=== PATIENT | female | born 1970 | race Caucasian/White ===

== ENCOUNTER 2023-08-09 11:29 | Outpatient (OUT) | payer OTHER, SELFPAY ==
--- NOTE | 2023-08-09 11:39 | MM_ITS ---
Patient Name: HARDEEP GARCIA MR#: [id number] : 1970 Exam Date: 08/09/2023 Ordering Doctor: JACKIE Kunz CNP RADIOLOGY REPORT PROCEDURE: MM TOMOSYNTHESIS SCREENING BI COMPARISON: MG MAMM SCREEN JUAN MANUEL W CAD, 01/22/2020. MG MAMM SCREEN 3D JUAN MANUEL CAD, 09/06/2021. INDICATIONS: screening Calculator Name NCI Breast Cancer Risk Assessment Tool 5 Year Breast Cancer Risk 1.20% Lifetime Breast Cancer Risk 8.10% Personal Breast Cancer No Personal Ovarian Cancer No Treatments None Family Cancers None LOCATION: [facility] BREAST COMPOSITION: There are scattered areas of fibroglandular density. FINDINGS: DIAGNOSTIC CATEGORY 1--NEGATIVE. NO CHANGE FROM COMPARISON ASSESSMENT. Scattered benign-appearing calcifications are present. Scattered benign-appearing lymph nodes are present. RIGHT BREAST: No significant suspicious finding. LEFT BREAST: No significant suspicious finding. RECOMMENDATIONS: ROUTINE MAMMOGRAM AND CLINICAL EVALUATION IN 12 MONTHS. PLEASE NOTE: A NORMAL MAMMOGRAM DOES NOT EXCLUDE THE POSSIBILITY OF BREAST CANCER. A CLINICALLY SUSPICIOUS PALPABLE LUMP SHOULD BE BIOPSIED. Dictated by: Berny Howard MD on 08/09/2023 at 14:33 Approved by: Berny Howard MD on 08/09/2023 at 14:35
== END 2023-08-09 11:30 | disposition home or self-care (01) ==
LOC: MAMMO 11:33
PROVIDERS: PCP Nurse Practitioner; Visit Provider Nurse Practitioner
DX: Z12.31 Encounter for screening mammogram for malignant neoplasm of breast (principal)
CPT/HCPCS: 77063; 77067

== ENCOUNTER 2024-09-29 10:59 | Outpatient (OUT) | payer OTHER, SELFPAY ==
--- OUTSIDE RECORDS SUMMARY | 2024-09-23 14:40 | XMS_ITS | Encounter Summary ---
Author Organization [facility] Address [address] [place] [address] Care Team Providers Care Electrical Appliance Mechanic Name Role Phone Mack Vaughn MD Primary Care Provider Amy Kunz REGULATORY COMPLIANCE MANAGER Unavailable [phone] Amy Kunz REGULATORY COMPLIANCE MANAGER Unavailable [phone] Reason for Visit * Reason Comments Diabetes Encounter Details Date Type Department Care Team (Late st Contact Info) Description 09/23/2024 2:40 PM EDT Office Visit [facility] [address] [place] [address] Amy Kunz, REGULATORY COMPLIANCE MANAGER [address] [place] [phone] Type 2 diabetes mellitus without complication, without long-term current use of insulin (HCC) (Primary Dx); Obstructive sleep apnea, adult; Primary hypertension ; Gastroesophageal reflux disease without esophagitis; Age-related osteoporosis without current pathological fracture ; Mild persistent asthma without complication (HCC) Social History Tobacco Use Types Packs/Day Years Used Date Smoking Tobacco: Never Alcohol Use Standard Drinks/Week Comments Not Currently 0 (1 standard drink = 0.6 oz pure alcohol) caffine:diet pepsi 2-3 can daily Humiliation, Afraid, Rape, and Kick questionnair e Answer Date Recorded Within the last year, have y ou been afraid of your partner or ex-partner? No 04/09/2023 Within the last year, have y ou been humiliated or emotionally abused in other ways by your partner or ex-partner? No Within the last year, have y ou been kicked, hit, slapped, or otherwise physically hurt by your partner or ex-partner? No 04/09/2023 Within the last year, have y ou been raped or forced to have any kind of sexual activity by your partner or ex-partner? No 04/09/2023 Social Connection and Isolat ion Panel [NHANES] Answer Date Recorded Frequency of Communication w ith Friends and Family Not on file 05/15/2024 How often do you get togethe r with friends or relatives? More than three times a week 05/15/2024 Attends Faith Services Not on file 05/15 Active Member of Clubs or Organizations Not on f ile 05/15/2024 Attends Club or Organization Meetings Not on nikki e 05/15/2024 Are you , , di vorced, , never , or living with a partner? 05/15/2024 AUDIT-C Answer Date Recorded Q1: How often do you have a drink containing alcohol? Never 04/09/2023 Q2: How many drinks containi ng alcohol do you have on a typical day when you are drinking? Patient does not drink Q3: How often do you have si x or more drinks on one occasion? Never 04/09/2023 Overall Financial Resource Strain (CARDIA) Answe r Date Recorded How hard is it for you to pa y for the very basics like food, housing, medical care, and heating? Hard 04/09/2023 [facility] - Occupational Stress Questionnaire Answer Date Recorded Do you feel stress - tense, restless, nervous, or anxious, or unable to sleep at night because your mind is troubled all the time - these days? To some extent 04/09/2023 Exercise Vital Sign Answer Date Recorde d On average, how many days pe r week do you engage in moderate to strenuous exercise (like a brisk walk)? 0 days 04/09/2023 On average, how many minutes do you engage in exercise at this level? 0 min 04/09/2023 Hunger Vital Sign Answer Date Recorded Within the past 12 months, y ou worried that your food would run out before you got the money to buy more. Sometimes true Within the past 12 months, t he food you bought just didn't last and you didn't have money to get more. Sometimes true 04/2023 PRAPARE - Transportation Answer Date Re corded In the past 12 months, has l ack of transportation kept you from medical appointments or from getting medications? No 04/2023 In the past 12 months, has l ack of transportation kept you from meetings, work, or from getting things needed for daily living? No 04/09/2023 Housing Stability Vital Sign Answer Jose Elias e Recorded In the last 12 months, was t here a time when you were not able to pay the mortgage or rent on time? No 04/09/2023 In the last 12 months, how many places have you lived? 1 04/09/2023 In the last 12 months, was t here a time when you did not have a steady place to sleep or slept in a usp (including now)? No 04/09/2023 Comments Unknown Sex and Gender Information Value Date Recorded Sex Assigned at Not on file Legal Sex Female 6:48 PM EDT Gender Identity Not on file Sexual Orientation Not on file documented as of this encounter Last Filed Vital Signs Vital Sign Reading Time Taken Comments Blood Pressure 110/76 09/23/2024 2:45 PM EDT Pulse 103 09/23/2024 2:45 PM EDT Temperature 36.7 C (98.1 F) 09/23/2024 2:45 PM EDT Respiratory Rate 18 09/23/2024 2:45 PM EDT Oxygen Saturation 94% 09/23/2024 2:45 PM EDT Inhaled Oxygen Concentration - - Weight 132 kg (290 lb 3.2 oz) 09/23/2024 2:45 PM EDT Height - - Body Mass Index 51.41 05/22/2024 1:14 PM EST documented in this encounter Progress Notes * Amy Kunz, REGULATORY COMPLIANCE MANAGER - 09/23/2024 3:43 PM EDTAssociated Problem(s): Mild persistent asthma without complication (HCC) Cont ICS, as well as rescue inhaler No changes in meds or doses * Amy Kunz NP - 09/23/2024 3:01 PM EDTAssociated Problem(s): Type 2 diabetes mellitus without complication, without long-term current useof insulin (HCC) Check blood sugars daily, notify if <70 or >200. Take medications (pills or insulin) as directed. Monitor for s/s of hypoglycemia (sweaty, dizziness, nausea, vomiting, or shakiness). Watch for increase in thirst, urination, or appetite. Inspect feet frequently monitoring for open wounds , andalso recommend yearly eye exam. Pt should attempt to remain as physically active as chronic conditions allow, as well as trying to follow a diet low in carbohydrates, and simple sugars. Asa, statin, metformin, lala Check A1c: 6.7% 09/23/24 * Amy Kunz NP - 09/23/2024 2:40 PM EDT Images from the original note were not included. Derick Thornton is a 54 y.o. female presents with chief complaint of Diabetes HPI: Continues with Rheumatology for sarcoid, they recently started methotrexate and trying to wean downand off prednisone Continues with psych and counseling as well, meds are working well Hypertension This is a chronic problem. The current episode started more than 1 year ago. The problem is unchanged. The problem is controlled. Pertinent negatives include no chest pain, headaches, orthopnea, palpitations, peripheral edema, PND or shortness of breath. There are no associated agents to hypertension. Risk factors for coronary artery disease include diabetes mellitus, dyslipidemia, obesity and sedentary lifestyle. Past treatments include LALA inhibitors. The current treatment provides significant improvement. There are no compliance problems. Diabetes She presents for her follow-up diabetic visit. She has type 2 diabetes mellitus. Her disease coursehas been stable. There are no hypoglycemic associated symptoms. Pertinent negatives for hypoglycemia include no dizziness, headaches, nervousness/anxiousness, seizures or tremors. Pertinent negativesfor diabetes include no chest pain, no foot paresthesias, no polydipsia, no polyphagia, no polyuriaand no visual change. There are no hypoglycemic complications. Symptoms are stable. Diabetic complications include heart disease. Pertinent negatives for diabetic complications include no nephropathyor peripheral neuropathy. Risk factors for coronary artery disease include diabetes mellitus, dyslipidemia, hypertension, obesity and sedentary lifestyle. Current diabetic treatment includes oral agent (monotherapy). She is compliant with treatment all of the time. An LALA inhibitor/angiotensin II receptor kristin is being taken. She does not see a structural steel erector.Eye exam is current. SUBJECTIVE: MEDICATIONS: Current Outpatient Medications Medication Instructions albuterol HFA 90 mcg/act inhaler 2 puffs, Daily PRN alendronate (FOSAMAX) 35 mg, Oral, Every 7 days, Take in the morning with a full glass of water, prince empty stomach, and do not take anything else by mouth or lie down for the next 30 min. Calcium Carb-Cholecalciferol (Calcium + Vitamin D3) 600-5 MG-MCG tablet 1 tablet, Oral, 2 times daily cyanocobalamin (VITAMIN B-12) 1,000 mcg, Daily DULoxetine (Cymbalta) [address] capsule 2 capsules, Daily ergocalciferol (Vitamin D2) 1.25 MG (61028 UT) capsule 1 pill twice a week fluticasone (Flovent) 44 MCG/ACT inhaler folic acid (FOLVITE) 1 mg, Daily gabapentin (NEURONTIN) 300 mg, Oral, 2 times daily glucose blood (True Metrix Blood Glucose Test) test strip 1 each, Other, Daily lisinopril 10 mg, Oral, Daily loratadine (CLARITIN) 10 mg, Oral, Daily metFORMIN (GLUCOPHAGE) 500 mg, Oral, Daily with breakfast methotrexate 2.5 MG tablet 8 tablets Orally Once a week for 30 days nortriptyline (PAMELOR) 50 mg, Nightly omeprazole (PRILOSEC) 20 mg, Oral, Daily before breakfast tiZANidine (Zanaflex) 4 MG capsule 1 capsule, Nightly PRN traZODone (Desyrel) 50 MG tablet 1 tablet, Nightly ALLERGIES: No Known Allergies REVIEW OF SYMPTOMS: Review of Systems Constitutional: Negative for appetite change, chills and fever. HENT: Negative for congestion, ear pain and sore throat. Eyes: Negative for pain, discharge, redness and visual disturbance. Respiratory: Negative for cough, shortness of breath and wheezing. Cardiovascular: Negative for chest pain, palpitations, orthopnea, leg swelling and PND. Gastrointestinal: Negative for abdominal pain, blood in stool, constipation, diarrhea, nausea and vomiting. Genitourinary: Negative for difficulty urinating, dysuria and frequency. Musculoskeletal: Positive for arthralgias. Negative for back pain, joint swelling and myalgias. Skin: Negative for rash and wound. Neurological: Negative for dizziness, tremors, seizures, syncope and headaches. Psychiatric/Behavioral: Negative for behavioral problems, self-injury and suicidal ideas. The patient is not nervous/anxious. Depression Hematological: Does not bruise/bleed easily. Endocrine: Negative for polydipsia, polyphagia and polyuria. Allergic/Immunologic: Negative for environmental allergies and food allergies. PAST MEDICAL HISTORY Past Medical History: Diagnosis Date Age-related osteoporosis with current pathological fracture, initial encounter 06/18/2023 Bipolar depression ([facility]) 04/10/2023 Chronic lumbar pain 06/18/2023 Chronic pain of right knee Dyspnea 04/23/2023 Elevated bilirubin 06/18/2023 Environmental allergies 06/18/2023 Fibromyalgia 04/10/2023 long term care phlebotomist systemic steroid user 06/18/2023 Obstructive sleep apnea, adult 06/18/2023 Primary hypertension 04/10/2023 Sarcoidosis 04/10/2023 Skin lesion 06/18/2023 Tear of meniscus of right knee, unspecified meniscus, unspecified tear type, unspecified whether old or current tear 06/18/2023 Type 2 diabetes mellitus without complication, without long-term current use of insulin ([facility]) 04/10/2023 Past Surgical History: Procedure Laterality Date SECTION, LOW TRANSVERSE x 2 HYSTERECTOMY Partial - not due to cancer KNEE SURGERY Left 07/31/[address] Mooney LUMBAR EPIDURAL INJECTION Lumbar injections with pain mgmt TONSILLECTOMY and Adenoidectomy family history includes Asthma in her mother; Cancer in her mother; Depression in her mother; Diabetes in her father; GILDA disease in her mother; Hypertension in her father and mother; Mental illness in her mother. OBJECTIVE: Visit Vitals BP 110/76 (BP Location: Left arm, Patient Position: Sitting, BP Cuff Size: Adult long) Pulse 103 Temp 98.1 ??F (Temporal) Resp 18 Wt 290 lb 3.2 oz SpO2 94% BMI 51.41 kg/m?? Smoking Status Never BSA 2.42 m?? Physical Exam Vitals and nursing note reviewed. Constitutional: General: She is not in acute distress. Appearance: Normal appearance. HENT: Head: Normocephalic and atraumatic. Right Ear: External ear normal. Left Ear: External ear normal. Nose: Nose normal. Mouth/Throat: Mouth: Mucous membranes are moist. Eyes: Extraocular Movements: Extraocular movements intact. Conjunctiva/sclera: Conjunctivae normal. Neck: Vascular: No carotid bruit. Cardiovascular: Rate and Rhythm: Normal rate and regular rhythm. Pulses: Normal pulses. Heart sounds: Normal heart sounds. No murmur heard. Pulmonary: Effort: Pulmonary effort is normal. Breath sounds: Normal breath sounds. No wheezing or rhonchi. Abdominal: General: Bowel sounds are normal. There is no distension. Palpations: Abdomen is soft. There is no mass. Tenderness: There is no abdominal tenderness. Musculoskeletal: General: Normal range of motion. Cervical back: Normal range of motion and neck supple. Right lower leg: No edema. Left lower leg: No edema. Skin: General: Skin is warm and dry. Capillary Refill: Capillary refill takes 2 to 3 seconds. Findings: No rash. Neurological: General: No focal deficit present. Mental Status: She is alert and oriented to person, place, and time. Psychiatric: Mood and Affect: Mood normal. Behavior: Behavior normal. Thought Content: Thought content normal. Judgment: Judgment normal. ASSESSMENT AND PLAN: No follow-ups on file. Problem List Items Addressed This Visit Gastroesophageal reflux disease without esophagitis Also taking d/t chronic steroid use Recommendations: freq small meals, nothing to eat or drink at least 2 hours prior to bed, limit caffeine, alcohol, as well as spicy foods Meds to limit or avoid if possible: NSAIDS Elevate HOB if possible Current med: omeprazole Primary hypertension Please check blood pressure daily and record DASH diet Limit caffeine Take medication as directed Contact office if chest pain, pressure, dizziness, shortness of breath, swelling legs Recommend slow position changes Current med: lisinopril Type 2 diabetes mellitus without complication, without long-term current use of insulin ([facility]) - Primary Check blood sugars daily, notify if <70 or >200. Take medications (pills or insulin) as directed. Monitor for s/s of hypoglycemia (sweaty, dizziness, nausea, vomiting, or shakiness). Watch for increase in thirst, urination, or appetite. Inspect feet frequently monitoring for open wounds , andalso recommend yearly eye exam. Pt should attempt to remain as physically active as chronic conditions allow, as well as trying to follow a diet low in carbohydrates, and simple sugars. Asa, statin, metformin, lala Check A1c: 6.7% 09/23/24 Relevant Orders POCT glycosylated hemoglobin (Hb A1C) docked device (Completed) Obstructive sleep apnea, adult You have a diagnosis of obstructive sleep apnea. It is recommended that you wear your PAP device any time while in bed sleeping. Not using the PAP device can increase your risk of elevated/uncontrolled high blood pressure, atrial fibrillation, heart attack, stroke, or sudden . Compliance with PAP: not Dog chewed up mask, had to wait a year, and then just didn't go back to get it. Webster no benefit from this Mild persistent asthma without complication (HCC) Cont ICS, as well as rescue inhaler No changes in meds or doses Age-related osteoporosis without current pathological fracture On fosamax Relevant Orders DEXA bone density * Amy Kunz NP - 09/23/2024 6:53 AM EDTAssociated Problem(s): Age-related osteoporosis without current pathological fracture On fosamax * Amy Kunz NP - 09/23/2024 6:52 AM EDTAssociated Problem(s): Gastroesophageal reflux disease without esophagitis Also taking d/t chronic steroid use Recommendations: freq small meals, nothing to eat or drink at least 2 hours prior to bed, limit caffeine, alcohol, as well as spicy foods Meds to limit or avoid if possible: NSAIDS Elevate HOB if possible Current med: omeprazole * Amy Kunz NP - 09/23/2024 6:52 AM EDTAssociated Problem(s): Primary hypertension Please check blood pressure daily and record DASH diet Limit caffeine Take medication as directed Contact office if chest pain, pressure, dizziness, shortness of breath, swelling legs Recommend slow position changes Current med: lisinopril * Amy Kunz NP - 09/23/2024 6:52 AM EDTAssociated Problem(s): Obstructive sleep apnea, adult You have a diagnosis of obstructive sleep apnea. It is recommended that you wear your PAP device any time while in bed sleeping. Not using the PAP device can increase your risk of elevated/uncontrolled high blood pressure, atrial fibrillation, heart attack, stroke, or sudden . Compliance with PAP: not Dog chewed up mask, had to wait a year, and then just didn't go back to get it. Webster no benefit from this documented in this encounter Plan of Treatment Upcoming Encounters Date Type Department Care Team (Late st Contact Info) Description 03/25/2025 1:20 PM EST Office Visit [facility] [address] [place] [address] Amy Kunz NP [address] [place] [address] Scheduled Orders Name Type Priority Associated Diagnoses Orde r Schedule DEXA bone density Imaging Routine Age-related osteoporosis without current pathological fracture Expected: 09/23/2024 (Approximate), Expires: 09/23/2025 documented as of this encounter Procedures Procedure Name Priority Date/Time Associated Diagnosis Comments POCT GLYCOSYLATED HEMOGLOBIN (HGB A1C) Routine 09/23/2024 3:01 PM EDT Type 2 diabetes mellitus without complication, without long-term current use of insulin (HCC) documented in this encounter Results * (ABNORMAL) POCT glycosylated hemoglobin (Hb A1C) docked device (09/23/2024 3:01 PM EDT) Hemoglobin A1C 6.7 Blood Venous blood specimen / Unknown 09/23/2024 3:01 PM EDT Amy Kunz NP POINT OF CARE TEST ENTER/EDIT O RDERABLES Final Result documented in this encounter Visit Diagnoses Diagnosis Type 2 diabetes mellitus without complication, without long-term current use of insulin (HCC)- Primary Obstructive sleep apnea, adult Primary hypertension Unspecified essential hypertension Gastroesophageal reflux disease without esophagitis Esophageal reflux Age-related osteoporosis without current pathological fracture Mild persistent asthma without complication (HCC) documented in this encounter Care Teams Electrical Appliance Mechanic Relationship Specialty Start Date End Date Mack Vaughn MD [address] [place] [phone] PCP - General Family Medicine 10/03/23 Amy Kunz NP [address] [place] [phone] PCP - [facility] 04/09/24 Amy Kunz NP [address] [place] [phone] Nurse Practitioner Family Medicine 10/03/23 documented as of this encounter
--- OUTSIDE RECORDS SUMMARY | 2024-09-29 11:05 | XMS_ITS | Encounter Summary ---
Author Organization [facility] Address [id number] [address] [place] [address] Care Team Providers Care Chartered Financial Analyst Name Role Phone Mack Vaughn MD Primary Care Provider [phone] Encounter Details Date Type Department Care Team (Latest Contact Info) Description 09/23/2024 Travel Social History Tobacco Use Types Packs/Day Years Used Date Smoking Tobacco: Never Smokeless Tobacco: Never Alcohol Use Standard Drinks/Week Comments No 0 (1 standard drink = 0.6 oz pur e alcohol) Childcare Answer Date Recorded Childcare Unknown 09/10/2018 Employment Answer Date Recorded Employment Unknown 09/10/2018 Hunger Screening Answer Date Recorded Within the past 12 months we worried whether our food would run out before we got money to buy more. Never True 07/22/2024 Within the past 12 months th e food we bought just didn't last and we didn't have money to get more. Never True 07/22/2024 Purpose - Life Answer Date Recorded Purpose and direction in life Unknown Comments No Sex and Gender Information Value Date Recorded Sex Assigned at Female 01/30/2022 12:07 AM EDT Legal Sex Female 11:32 AM EDT Gender Identity Female 11/18/2020 4:13 PM EDT Sexual Orientation Straight 11/18/2020 4: 13 PM EDT documented as of this encounter Plan of Treatment Not on file documented as of this encounter Visit Diagnoses Not on filedocumented in this encounter Care Teams Chartered Financial Analyst Relationship Specialty Start Date End Date Mack Vaughn MD PCP - General 11/9/24 documented as of this encounter
--- OUTSIDE RECORDS SUMMARY | 2024-09-29 11:05 | XMS_ITS | Encounter Summary ---
Author Organization [facility] Address [address] [place] [address] Care Team Providers Care Visiting Professor Name Role Phone Mack Vaughn MD Primary Care Provider Amy Kunz ENGRAVER FLATWARE Unavailable [phone] Amy Kunz ENGRAVER FLATWARE Unavailable [phone] Encounter Details Date Type Department Care Team (Late st Contact Info) Description 05/05/2024 Orders Only [facility] [address] [place] [address] Amy Kunz, ENGRAVER FLATWARE [address] [place] [address] Social History Tobacco Use Types Packs/Day Years [...] or ex-partner? No 04/09/2023 Social Connection and Isolation Panel [NHANES] A nswer Date Recorded In a typical week, how many times do you talk on the phone with family, friends, or neighbors? Three times a week 04/09/2023 How often do you get togethe r with friends or relatives? Once a week 04/09/2023 How often do you attend chur ch or taoism services? Never 04/09/2023 Do you belong to any clubs o r organizations such as catholic groups, unions, fraternal or athletic groups, or school groups? No 04/09/2023 How often do you attend meet ings of the clubs or organizations you belong to? Never 04/09/2023 Are you , , di vorced, , never , or living with a partner? 04/09/2023 AUDIT-C Answer Date Recorded Q1: How often [...] housing, medical care, and heating? Hard 04/09/2023 [facility] - Occupational Stress [...] place to sleep or slept in a half-way (including now)? No 04/09/2023 Comments Unknown Sex and Gender Information Value Date Recorded Sex Assigned at Not on file Legal Sex Female 6:48 PM EDT Gender Identity Not on file Sexual Orientation Not on file documented as of this encounter Plan of Treatment Upcoming Encounters Date Type Department Care Team (Late st Contact Info) Description 03/25/2025 1:20 PM EST [facility] [address] [place] [address] Amy Kunz NP [address] [place] [address] documented as of this encounter Procedures Procedure Name Priority Date/Time Associated Diagnosis Comments SCANNED LABS Routine 05/05/2024 7:38 AM EST documented in this encounter Results * SCANNED LABS (05/05/2024 7:38 AM EST) us Amy Kunz NP LAB CHG PERFORMABLES Final Resu lt documented in this encounter Visit Diagnoses Not on filedocumented in this encounter Care Teams Visiting Professor Relationship Specialty Start Date End Date aMck Vaughn MD [address] [place] [address] PCP - General Family Medicine 10/03/23 Amy Kunz NP [address] [place] [address] PCP - [facility] 04/09/24 Amy Kunz NP [address] [place] [address] Nurse Practitioner Family Medicine 10/03/23 documented as of this encounter
--- OUTSIDE RECORDS SUMMARY | 2024-09-29 11:05 | XMS_ITS | Encounter Summary ---
Author Organization [facility] Address [address] [place] [address] Care Team Providers Care Break Up Worker Name Role Phone Mack Vaughn MD Primary Care Provider [phone] Amy Kunz UTILITY AGENT Unavailable [phone] Amy Kunz UTILITY AGENT Unavailable [phone] Reason for Visit * Reason Onset Date Comments Med Refill 09/26/2024 Encounter Details Date Type Department Care Team (Late st Contact Info) Description 09/26/2024 Refill [facility] [address] [place] [address] Amy Kunz, UTILITY AGENT [address] [place] [address] Vitamin D deficiency Social History Tobacco Use Types Packs/Day Years [...] than three times a week 05/15/2024 Attends Christianity Services Not on file 05/15 Active Member [...] housing, medical care, and heating? Hard 04/09/2023 [facility] - [...] place to sleep or slept in a snf (including now)? No 04/09/2023 Comments Unknown Sex and Gender Information Value Date Recorded Sex Assigned at Not on file Legal Sex Female 6:48 PM EDT Gender Identity Not on file Sexual Orientation Not on file documented as of this encounter Plan of Treatment Upcoming Encounters Date Type Department Care Team (Late st Contact Info) Description 03/25/2025 1:20 PM EST Office Visit [facility] [address] [place] [address] Amy Kunz NP [address] [place] [address] documented as of this encounter Visit Diagnoses Diagnosis Vitamin D deficiency documented in this encounter Care Teams Break Up Worker Relationship Specialty Start Date End Date Mack Vaughn MD [address] [place] [address] PCP - General Family Medicine 10/03/23 Amy Kunz NP [address] [place] [address] PCP - [facility] 04/09/24 Amy Kunz NP [address] [facility] [place] [address] Nurse Practitioner Family Medicine 10/03/23 documented as of this encounter
--- OUTSIDE RECORDS SUMMARY | 2024-09-29 11:05 | XMS_ITS | Encounter Summary ---
Author Organization [facility] Address [address] [place] [address] Care Team Providers Care Sponsorship Coordinator Name Role Phone Amy Kunz NP Primary Care Provider Mariza Lemus NP Unavailable [phone] Mack Vaughn MD Primary Care Provider [phone] Amy Kunz AIRBRUSH ARTIST Unavailable [phone] Amy Kunz AIRBRUSH ARTIST Unavailable [phone] Reason for Visit * Reason Comments Med Refill Encounter Details Date Type Department Care Team (Late st Contact Info) Description 04/22/2023 Refill [facility] [address] [place] [address] Mariza Lemus AIRBRUSH ARTIST Social History Tobacco Use Types Packs/Day Years [...] often do you attend chur ch or hindu services? Never 04/09/2023 Do you belong to any clubs o r organizations such as adventism groups, unions, fraternal or athletic groups, or [...] housing, medical care, and heating? Hard 04/09/2023 [facility] - Occupational Stress [...] place to sleep or slept in a chcf (including now)? No 04/09/2023 Comments Unknown Sex and Gender Information Value Date Recorded Sex Assigned at Not on file Legal Sex Female 6:48 PM EDT Gender Identity Not on file Sexual Orientation Not on file documented as of this encounter Miscellaneous Notes * Telephone Encounter - Mariza Lemus NP - 04/25/2023 11:50 AM EST Pt has not been seen since last summer, she should get this from her pcp, thanks documented in this encounter Plan of Treatment Upcoming Encounters Date Type Department Care Team (Late st Contact Info) Description 03/25/2025 1:20 PM EST Office Visit [facility] [address] [place] [address] Amy Kunz NP [address] [place] [address] documented as of this encounter Visit Diagnoses Not on filedocumented in this encounter Care Teams Sponsorship Coordinator Relationship Specialty Start Date End Date Amy Kunz NP [address] [place] [address] PCP - General 08/30/22 10/02/23 Mariza Lemus NP PCP - [facility] 07/09/23 Mack Vaughn MD [address] [place] [address] PCP - General [facility] Medicine 10/03/23 Amy Kunz NP [address] [place] [address] PCP - [facility] 04/09/24 Amy Kunz NP [address] [place] [address] Nurse Practitioner Family Medicine 10/03/23 documented as of this encounter
--- OUTSIDE RECORDS SUMMARY | 2024-09-29 11:05 | XMS_ITS | Encounter Summary ---
Author Organization [employer] tem Address [id number] [address] [place] [address] Care Team Providers Care Processing Associate Name Role Phone Mack Vaughn MD Primary Care Provider [phone] Reason for Visit * Reason Onset Date Comments Med Refill 07/28/2020 Encounter Details Date Type Department Care Team (Late st Contact Info) Description 07/28/2020 Refill [facility] [address] [place] [address] Geri Castle, ANUJA Disorder of sacrum Social History Tobacco Use Types Packs/Day Years Used Date Smoking Tobacco: Never Smokeless Tobacco: Never Alcohol Use Standard Drinks/Week Comments No 0 (1 standard drink = 0.6 oz pur e alcohol) Childcare Answer Date Recorded Childcare Unknown 09/10/2018 Employment Answer Date Recorded Employment Unknown 09/10/2018 Purpose - Life Answer Date Recorded Purpose and direction in life Unknown Comments No Sex and Gender Information Value Date Recorded Sex Assigned at Female 01/30/2022 12:07 AM EDT Legal Sex Female 11:32 AM EDT Gender Identity Female 11/18/2020 4:13 PM EDT Sexual Orientation Straight 11/18/2020 4: 13 PM EDT COVID-19 Exposure Response Date Recorded In the last month, have you been in contact with someone who was confirmed or suspected to have Coronavirus / COVID-19? No / Unsure 07/19/2020 2:29 PM EDT documented as of this encounter Miscellaneous Notes * Telephone Encounter - Geri Castle RN - 07/28/2020 8:07 AM EDT Last Office Visit: 06/03/2020 Next Office Visit: 08/26/2020 Last Urine Drug Screen: 02/25/2021 OARRS appropriate documented in this encounter Plan of Treatment Not on file documented as of this encounter Visit Diagnoses Diagnosis Disorder of sacrum Disorders of sacrum documented in this encounter Care Teams Processing Associate Relationship Specialty Start Date End Date Mack Vaughn MD PCP - General 02/16/24 documented as of this encounter
--- OUTSIDE RECORDS SUMMARY | 2024-09-29 11:05 | XMS_ITS | Clinical Summary ---
Author Organization [employer] tem Address [id number] [address] [place] [address] Care Team Providers Care Picker Operator Name Role Phone Mack Vaughn MD Primary Care Provider [phone] Allergies No known active allergies Medications * This document contains information received from the source organization and may not represent a complete record from that organization. gabapentin (NEURONTIN) 300 mg capsule Take 1 capsule (300 mg total) by mouth in the morning. Active predniSONE (DELTASONE) 10 mg tablet Take 1 tablet (10 mg total) by mouth in the morning. Active albuterol (PROVENTIL HFA;VENTOLIN HFA) 90 mcg/actuation inhaler Inhale 2 puffs as needed for wheezing. Active ergocalciferol (DRISDOL) 50,000 unit capsule Take 1 capsule (50,000 Units total) by mouth once a week. Active lisinopril (PRINIVIL,ZESTRIL) 10 mg tablet Take 1 tablet (10 mg total) by mouth in the morning. Active loratadine (CLARITIN REDITABS) 10 mg disintegrating tablet Dissolve 1 tablet (10 mg total) on tongue daily as needed. Active alendronate (FOSAMAX) 70 mg tablet Take 1 tablet (70 mg total) by mouth once a week. 8 Active metFORMIN (GLUCOPHAGE) 500 mg tablet Take 1 tablet (500 mg total) by mouth nightly. 9 Active traZODone (DESYREL) 50 mg tablet Take 1 tablet (50 mg total) by mouth nightly as needed, may repeat once. Active CALCIUM 600 + D,3, 600 mg(1,500mg) -200 unit per tablet Take 1 tablet by mouth in the morning. 0 Active omeprazole (PriLOSEC) 20 mg capsule Take 1 capsule (20 mg total) by mouth in the morning. 0 Active fluticasone propionate (FLOVENT HFA) 44 mcg/actuation inhaler Inhale 1 puff 2 (two) times a day as needed. Active nortriptyline (PAMELOR) 25 mg capsuleIndications: Major depressive disorder, recurrent severe without psychotic features (CMS-HCC) TAKE TWO CAPSULES BY MOUTH ONCE NIGHTLY 180 capsule 3 4 Active cyanocobalamin 1000 MCG tablet Daily 4 Active DULoxetine (CYMBALTA) 60 mg capsuleIndications: Major depressive disorder, recurrent severe without psychotic features (CMS-HCC) Take 2 capsules (120 mg total) by mouth in the morning. 180 capsule 3 5 Active Active Problems Problem Noted Date Diagnosed Date Abnormal EKG 05/29/2022 Primary hypertension 05/29/2022 Other insomnia 07/25/2021 Sarcoidosis 07/01/2018 Disorder of sacrum 11/28/2016 Localized osteoarthritis of right knee 7 Major depressive disorder, r ecurrent severe without psychotic features 11/22/2016 Thoracic spondylosis without myelopathy 05/29/19 17 Spondylosis of lumbar region without myelopathy or radiculopathy 05/29/2016 Lumbosacral spondylosis without myelopathy 05/29 Back muscle spasm 05/29/2016 Obesity, unspecified 05/29/2016 Obstructive sleep apnea (adult) (pediatric) 05/11 Chronic pain syndrome 05/29/2016 Localized osteoarthrosis, lower leg 05/29/2016 Lumbago 05/29/2016 Lumbosacral radiculopathy 05/29/2016 Admission for long-term opiate analgesic use Encounters * This document contains information received from the source organization and may not represent a complete record from that organization. Date Type Department Care Team Description 09/23/2024 Travel 09/02/2024 Travel 08/12/2024 Travel 07/22/2024 Travel 07/01/2024 Travel from Last 3 Months Family History Medical History Relation Name Comments Diabetes Father borderline Hypertension Father Cancer Maternal Grandfather brain Asthma Mother Breast cancer Mother Hypertension Mother Relation Name Status Comments Father Alive Maternal Grandfather Mother Alive Social History Tobacco Use Types Packs/Day Years Used Date Smoking Tobacco: Never Smokeless Tobacco: Never Tobacco Cessation:Counseling Given: Not Answered Alcohol Use Standard Drinks/Week Comments No 0 [...] Orientation Straight 11/18/2020 4: 13 PM EDT Last Filed Vital Signs Vital Sign Reading Time Taken Comments Blood Pressure 165/72 02/16/2024 12:48 PM EST Pulse 99 02/16/2024 12:48 PM EST Temperature 36.6 C (97.8 F) 02/16/2024 12:48 PM EST Respiratory Rate 16 02/16/2024 12:48 PM EST Oxygen Saturation 97% 02/16/2024 12:48 PM EST Inhaled Oxygen Concentration - - Weight 124.7 kg (275 lb) 02/16/2024 12:48 PM EST Height 160 cm (5' 3 ) 02/16/2024 12:48 PM EST Body Mass Index 48.71 02/16/2024 12:48 PM EST Plan of Treatment Health Maintenance Due Date Last Done Comments Depression Screening 1980 Adult BMI Follow Up Plan 1986 DTaP,Tdap and Td Vaccines (1 - Tdap) 1987 Zoster (Shingles) Vaccine (1 of 2) 2018 Influenza Vaccine 12/08/2024 Adult BMI Screening 02/15/2025 02/16/2024 Tobacco Screening 03/14/2025 03/14/2024 Medical Devices Not on file Insurance [employer] Care Teams Picker Operator Relationship Specialty Start Date End Date Mack Vaughn MD PCP - General 02/16/24
--- OUTSIDE RECORDS SUMMARY | 2024-09-29 11:05 | XMS_ITS | Encounter Summary ---
Author Organization [facility] Address [address] [place] [address] Care Team Providers Care Hogshead Filler Name Role Phone Mack Vaughn MD Primary Care Provider Amy Kunz EYELETTER Unavailable [phone] Amy Kunz EYELETTER Unavailable [phone] Encounter Details Date Type Department Care Team (Late st Contact Info) Description 10/29/2023 Abstract [facility] [address] [place] [address] Amy Kunz EYELETTER [address] [place] [address] Social History Tobacco Use Types Packs/Day Years [...] often do you attend chur ch or restoration services? Never 04/09/2023 Do you belong to any clubs o r organizations such as islam groups, unions, fraternal or athletic groups, or [...] housing, medical care, and heating? Hard 04/09/2023 [facility] - Occupational [...] place to sleep or slept in a assisted (including now)? No 04/09/2023 Comments Unknown Sex [...] Office Visit [facility] [address] [place] [address] Amy Kunz NP [address] [place] [address] documented as of this encounter Visit Diagnoses Not on filedocumented in this encounter Care Teams Hogshead Filler Relationship Specialty Start Date End Date Mack Vaughn MD [address] [place] [address] PCP - General Family Medicine 10/03/23 Amy Kunz NP [address] [place] [address] PCP - [facility] 04/09/24 mAy Kunz NP [address] [place] [address] Nurse Practitioner Family Medicine 10/03/23 documented as of this encounter
--- OUTSIDE RECORDS SUMMARY | 2024-09-29 11:05 | XMS_ITS | Clinical Summary ---
Author Organization [facility] Address [address] [place] [address] Care Team Providers Care Consulting Services Manager Name Role Phone Amy Kunz CNP Primary Care Provider Allergies No known active allergies Medications alendronate (FOSAMAX) 35 mg tablet Take 35 mg by mouth once each week. Active Benzonatate 200 mg capsule Take 200 mg by mouth three times daily as needed. Active DULoxetine (CYMBALTA) 60 mg capsule Take 120 mg by mouth once daily. Active ergocalciferol, vitamin D2, (DRISDOL) 50,000 unit capsule Take 50,000 Units by mouth once each week. Active gabapentin (NEURONTIN) 300 mg capsule Take 300 mg by mouth once daily. Active HYDROcodone-acet aminophen (NORCO) 5-325 mg per tablet Take 1 tablet by mouth three times daily as needed. Active hydroxychloroqui ne (PLAQUENIL) 200 mg tablet Take 400 mg by mouth once daily. Active lisinopril (ZESTRIL, PRINIVIL) 10 mg tablet Take 10 mg by mouth once daily. Active loratadine (CLARITIN) 10 mg tablet Take 10 mg by mouth once daily. Active omeprazole (PRILOSEC) 20 mg capsule Take 20 mg by mouth once daily. Active predniSONE (DELTASONE) 10 mg tablet Take 10 mg by mouth once daily. Active tiZANidine HCl 4 mg capsule Take 4 mg by mouth once daily. Active traZODone (DESYREL) 50 mg tablet Take 50 mg by mouth daily at bedtime. Active Active Problems Problem Noted Date Diagnosed Date Sarcoidosis 09/06/2017 Social History Tobacco Use Types Packs/Day Years Used Date Smoking Tobacco: Never Smokeless Tobacco: Never Area Deprivation Index Answer Date Sid rded National Score (1-100), lower number is lower ri sk Not on file 03/16/2020 State Score (1-10), lower number is lower risk N ot on file 03/16/2020 Data from: https://www.neighborhoodatlas.medicine.[facility]/. Last address used for calculation Not on file 03/16/2020 Comments Unknown Sex and Gender Information Value Date Recorded Sex Assigned at Not on file Legal Sex Female 1:59 PM EDT Gender Identity Not on file Sexual Orientation Not on file Last Filed Vital Signs Vital Sign Reading Time Taken Comments Blood Pressure 144/90 09/05/2017 2:06 PM EDT Pulse 88 09/05/2017 2:06 PM EDT Temperature 36.7 C (98 F) 09/05/2017 2:06 PM EDT Respiratory Rate 16 09/05/2017 2:06 PM EDT Oxygen Saturation 95% 09/05/2017 2:06 PM EDT Inhaled Oxygen Concentration - - Weight 133.6 kg (294 lb 8.6 oz) 09/05/2017 2:06 PM EDT Height 158 cm (5' 2.21 ) 09/05/2017 2:06 PM EDT Body Mass Index 53.52 09/05/2017 2:06 PM EDT Plan of Treatment Health Maintenance Due Date Last Done Comments Anxiety Screening 1986 Depression Screening 1986 HIV Screening 1986 Hepatitis C Screening 1986 DTaP,Tdap,Td Vaccine (1 - Tdap) 1987 Hepatitis B Vaccine (1 of 3 - 19+ 3-dose series) 04/05 Cervical Cancer Screening [address] Colonography 2013 Cologuard (FIT-DNA) 2013 Colonoscopy 2013 Colorectal Cancer Screening 2013 Diabetes Screening 2013 Fecal Occult Blood 2013 Lipid Screening 2013 Sigmoidoscopy 2013 Pneumococcal Vaccine: 50+ (1 of 1 - PCV) 2018 Shingrix Vaccine (1 of 2) 2018 Covid-19 Vaccine (1 - season) 2023 Influenza Vaccine (Season Ended) 2024 Insurance [facility] Care Teams Consulting Services Manager Relationship Specialty Start Date End Date Amy Kunz, TELETYPE TELEGRAPHER PCP - General Family Medicine 07/19/17
--- OUTSIDE RECORDS SUMMARY | 2024-09-29 11:05 | XMS_ITS | Encounter Summary ---
Author Organization [facility] tem Address [id number] [address] [place] [address] Care Team Providers Care Post Hole Digging Machine Operator Name Role Phone Mack Vaughn MD Primary Care Provider [phone] Reason for Visit * Reason Onset Date Comments Med Refill 07/28/2019 Encounter Details Date Type Department Care Team (Late st Contact Info) Description 07/28/2019 Refill [facility] [address] [place] [address] Dianelys Yee RN Disorder of sacrum Social History Tobacco Use Types Packs/Day Years Used Date Smoking Tobacco: Never Smokeless Tobacco: Never Alcohol Use Standard Drinks/Week Comments No 0 (1 standard drink = 0.6 oz pur e alcohol) Childcare Answer Date Recorded Childcare Unknown 09/10/2018 Employment Answer Date Recorded Employment Unknown 09/10/2018 Comments No Sex and Gender Information Value [...] have Coronavirus / COVID-19? No / Unsure 07/17/2019 2:20 PM EDT documented as of this encounter Miscellaneous Notes * Telephone Encounter - Dianelys Yee RN - 07/28/2019 9:39 AM EDT Last Office Visit: 07/15/19 (phone visit), in office last on 05/21/2019 Next Office Visit: 08/28/2019 Last Urine Drug Screen: 12/25/18 Lab Results Component Value Date BENZOSCRN Negative 12/25/2018 OARRS :appropriate. julia Gracia (last filled 07/02/19) to trace. Dianelys Yee RN 07/28/19 0941 documented in this encounter Plan of Treatment Not on file documented as of this encounter Visit Diagnoses Diagnosis Disorder of sacrum Disorders of sacrum documented in this encounter Care Teams Post Hole Digging Machine Operator Relationship Specialty Start Date End Date Mack Vaughn MD PCP - General 02/16/24 documented as of this encounter
--- OUTSIDE RECORDS SUMMARY | 2024-09-29 11:05 | XMS_ITS | Encounter Summary ---
Author Organization [facility] tem Address [id number] [address] [place] [address] Care Team Providers Care Central Office Inspector Name Role Phone Mack Vaughn MD Primary Care Provider [phone] Reason for Visit * Reason Onset Date Comments Med Refill 11/25/2019 Encounter Details Date Type Department Care Team (Late st Contact Info) Description 11/25/2019 Refill [facility] [address] [place] [address] Mary Valdez RN Disorder of sacrum Social History Tobacco [...] have Coronavirus / COVID-19? No / Unsure 11/14/2019 12:57 PM EDT documented as of this encounter Miscellaneous Notes * Telephone Encounter - Mary Valdez RN - 11/25/2019 1:24 PM EDT Last Office Visit: 10/30/2019 Next Office Visit: 01/29/2020 Last Urine Drug Screen: 08/28/2019 Lab Results Component Value Date BENZOSCRN Negative 08/28/2019 OARRS appropriate Mary Valdez RN 11/25/19 1326 documented in this encounter Plan of Treatment Not on file documented as of this encounter Visit Diagnoses Diagnosis Disorder of sacrum Disorders of sacrum documented in this encounter Care Teams Central Office Inspector Relationship Specialty Start Date End Date Mack Vaughn MD PCP - General 02/16/24 documented as of this encounter
--- OUTSIDE RECORDS SUMMARY | 2024-09-29 11:05 | XMS_ITS | Encounter Summary ---
Author Organization [facility] Address [address] [place] [address] Care Team Providers Care Keyboard Instrument Tuner Name Role Phone Amy Kunz NP Primary Care Provider [phone] Mariza Lemus COLLAR SETTER Unavailable [phone] Mack Vaughn MD Primary Care Provider [phone] Amy Kunz COLLAR SETTER Unavailable [phone] Amy Kunz NP Unavailable [phone] Encounter Details Date Type Department Care Team (Late st Contact Info) Description 08/09/2023 Clinisync Result Encounter [facility] External Department Unsolicited Amy Kunz NP [address] [place] [address] Social History Tobacco Use Types Packs/Day Years [...] often do you attend chur ch or rastafari services? Never 04/09/2023 Do you belong to any clubs o r organizations such as spiritism groups, unions, fraternal or athletic groups, or [...] housing, medical care, and heating? Hard 04/09/2023 [facility] - [...] place to sleep or slept in a skilled nursing (including now)? No 04/09/2023 Comments Unknown Sex [...] EST Office Visit [facility] [address] [place] [address] Amy Kunz NP [address] [place] [address] documented as of this encounter Procedures Procedure Name Priority Date/Time Associated Diagnosis Comments MM TOMOSYNTHESIS SCREENING BI 08/09/2023 2:35 PM EDT documented in this encounter Results * MM TOMOSYNTHESIS SCREENING BI (08/09/2023 2:35 PM EDT) Anatomical Region Laterality Modality Other 08/09/2023 2:35 PM EDT Narrative 08/09/2023 2:36 [place] [address] Mammography Report Signed Patient: DERICK THORNTON MR#: [id number] : 1970 Acct:[id number] Age/Sex: 53 / F ADM Date: 08/09/23 Loc: MAMMO Attending Dr: Amy Kunz NP Ordering Physician: Amy Kunz NP Results: Date of Service: 08/09/23 Follow Up: Procedure(s): MM tomosynthesis screening BI Accession Number(s): [id number] cc: Amy Kunz NP Patient Name: DERICK THORNTON MR#: [id number] : 1970 Exam Date: 08/09/2023 Ordering Doctor: JACKIE Kunz CNP RADIOLOGY REPORT PROCEDURE: MM TOMOSYNTHESIS SCREENING BI COMPARISON: MG MAMM SCREEN JUAN MANUEL W CAD, 01/22/2020. MG MAMM SCREEN 3D JUAN MANUEL CAD, 09/06/2021. INDICATIONS: screening Calculator Name NCI Breast Cancer Risk Assessment Tool 5 Year Breast Cancer Risk 1.20% Lifetime Breast Cancer Risk 8.10% Personal Breast Cancer No Personal Ovarian Cancer No Treatments None Family Cancers None LOCATION: [facility] BREAST COMPOSITION: There are scattered areas of fibroglandular density. FINDINGS: DIAGNOSTIC CATEGORY 1--NEGATIVE. NO CHANGE FROM COMPARISON ASSESSMENT. Scattered benign-appearing calcifications are present. Scattered benign-appearing lymph nodes are present. RIGHT BREAST: No significant suspicious finding. LEFT BREAST: No significant suspicious finding. RECOMMENDATIONS: ROUTINE MAMMOGRAM AND CLINICAL EVALUATION IN 12 MONTHS. PLEASE NOTE: A NORMAL MAMMOGRAM DOES NOT EXCLUDE THE POSSIBILITY OF BREAST CANCER. A CLINICALLY SUSPICIOUS PALPABLE LUMP SHOULD BE BIOPSIED. Dictated by: Berny Howard MD on 08/09/2023 at 14:33 Approved by: Berny Howard MD on 08/09/2023 at 14:35 Dictated By: Berny Howard M.D. Signed By: 08/09/23 1436 DD/ 1435 TD/TT: Scale Assembly Set Up Worker: Procedure Note Radiology, Radiologist, - 05/02/2024 [place] [address] Mammography Report Signed Patient: DERICK THORNTON TMR#: [id number] : 1970Acct:[id number] Age/Sex: 53 / FADM Date: 08/09/23 Loc: MAMMO Attending Dr: Amy Kunz NP Ordering Physician: Amy Kunz NPResults: Date of Service: 08/09/23Follow Up: Procedure(s): MM tomosynthesis screening BI Accession Number(s): [id number] cc: Amy Kunz NP Patient Name: DERICK THORNTON MR#: [id number] : 1970 Exam Date: 08/09/2023 Ordering Doctor: JACKIE Kunz CNP RADIOLOGY REPORT PROCEDURE: MM TOMOSYNTHESIS SCREENING BI COMPARISON: MG MAMM SCREEN JUAN MANUEL W CAD, 01/22/2020. MG MAMM SCREEN 3DBIL CAD, 09/06/2021. INDICATIONS: screening Calculator Name NCI Breast Cancer Risk Assessment Tool 5 Year Breast Cancer Risk 1.20% Lifetime Breast Cancer Risk 8.10% Personal Breast Cancer No Personal Ovarian Cancer No Treatments None Family Cancers None LOCATION: [facility] BREAST COMPOSITION: There are scattered areas of fibroglandulardensity. FINDINGS: DIAGNOSTIC CATEGORY 1--NEGATIVE. NO CHANGE FROM COMPARISON ASSESSMENT. Scattered benign-appearing calcifications are present. Scattered benign-appearing lymph nodes are present. RIGHT BREAST: No significant suspicious finding. LEFT BREAST: No significant suspicious finding. RECOMMENDATIONS: ROUTINE MAMMOGRAM AND CLINICAL EVALUATION IN 12 MONTHS. PLEASE NOTE: A NORMAL MAMMOGRAM DOES NOT EXCLUDE THE POSSIBILITY OFBREAST CANCER. A CLINICALLY SUSPICIOUS PALPABLE LUMP SHOULD BE BIOPSIED. Dictated by: Berny Howard MD on 08/09/2023 at 14:33 Approved by: Berny Howard MD on 08/09/2023 at 14:35 Dictated By: Berny Howard M.D. Signed By:08/09/23 1436 DD/ 1435 TD/TT: Scale Assembly Set Up Worker: Amy Kunz NP [facility] Final Result documented in this encounter Visit Diagnoses Not on filedocumented in this encounter Care Teams Keyboard Instrument Tuner Relationship Specialty Start Date End Date Amy Kunz NP [address] [place] [phone] PCP - General 08/30/22 10/02/23 Mariza Lemus NP PCP - [facility] 07/09/23 Mack Vaughn MD [address] [place] [address] PCP - General [facility] 10/03/23 Amy Kunz NP [address] [place] [address] PCP - [facility] 04/09/24 Amy Kunz NP [address] [place] [address] Nurse Practitioner Family Medicine 10/03/23 documented as of this encounter
--- OUTSIDE RECORDS SUMMARY | 2024-09-29 11:05 | XMS_ITS | Encounter Summary ---
Author Organization [facility] Address [id number] [address] [place] [address] Care Team Providers Care Tube Blower Name Role Phone Mack Vaughn MD Primary Care Provider [phone] Reason for Visit * Reason Onset Date Comments Med Refill 04/23/2019 Encounter Details Date Type Department Care Team (Late st Contact Info) Description 04/23/2019 Refill [facility] [address] [place] [address] Karen Ramirez RN Disorder of sacrum Social History Tobacco [...] encounter Miscellaneous Notes * Telephone Encounter - Karen Ramirez RN - 04/23/2019 2:32 PM EST Last OV: 02/19/19 Next OV: 05/21/19 OARRS appropriate: Yes Last UDS: 12/25/18 Pharmacy: Rosey Ramirez RN 04/23/19 1433 documented in this encounter Plan of Treatment Not on file documented as of this encounter Visit Diagnoses Diagnosis Disorder of sacrum Disorders of sacrum documented in this encounter Care Teams Tube Blower Relationship Specialty Start Date End Date Mack Vaughn MD PCP - General 02/16/24 documented as of this encounter
--- OUTSIDE RECORDS SUMMARY | 2024-09-29 11:05 | XMS_ITS | Encounter Summary ---
Author Organization [facility] Address [id number] [address] [place] [address] Care Team Providers Care Brands Editor Name Role Phone Mack Vaughn MD Primary Care Provider [phone] Encounter Details Date Type Department Care Team (Late st Contact Info) Description 05/12/2022 Orders Only [facility] [address] [place] [id number] External, Scanning Provider Social History Tobacco Use Types Packs/Day Years [...] have Coronavirus / COVID-19? No / Unsure 05/09/2022 10:57 AM EST documented as of this encounter Plan of Treatment Not on file documented as of this encounter Procedures Procedure Name Priority Date/Time Associated Diagnosis Comments XR CHEST 1 VW Routine 05/09/2022 BASIC METABOLIC PANEL Routine 05/09/2022 MULTIPLE LABS Routine 08/31/2021 LIPID PROFILE Routine 08/31/2021 documented in this encounter Results * Basic Metabolic Panel (05/09/2022) us Scanning Provider External LAB BLOOD ORDERABLES Final Result Performing Organization Address [facility] de Phone Number MANUALLY TRANSCRIBED RESULTS * X-ray chest 1 view (05/09/2022) Anatomical Region Laterality Modality Body, Chest N/A Computed Radiogr aphy us Scanning Provider External IMG DIAGNOSTIC IMAGIN G ORDERABLES Final Result * Lipid profile (08/31/2021) External Cholesterol 140 MANUALLY TRANSCRIBED RESULTS External Cholesterol:Hdl 2.0 MANUALLY TRANSCRIBED RESULTS External Hdl Cholesterol 69 MANUALLY TRANSCRIBED RESULTS External Ldl (Calc) 54 MANUALLY TRANSCRIBED RESULTS External Triglycerides 85 MANUALLY TRANSCRIBED RESULTS External Very Low Lipoprotein 17 MANUALLY TRANSCRIBED RESULTS us Scanning Provider External LAB BLOOD ORDERABLES Edited Result - Final Performing Organization Address [facility] de Phone Number MANUALLY TRANSCRIBED RESULTS * Multiple labs (08/31/2021) us Scanning Provider External [place] IMAGING Final Result Performing Organization Address [facility] de Phone Number MANUALLY TRANSCRIBED RESULTS documented in this encounter Visit Diagnoses Not on filedocumented in this encounter Care Teams Brands Editor Relationship Specialty Start Date End Date Mack Vaughn MD PCP - General 02/16/24 documented as of this encounter
--- OUTSIDE RECORDS SUMMARY | 2024-09-29 11:05 | XMS_ITS | Encounter Summary ---
Author Organization [facility] Address [address] [place] [address] Care Team Providers Care Pulpwood Buyer Name Role Phone Mack Vaughn MD Primary Care Provider Amy Kunz DIVING JUDGE Unavailable [phone] Amy Kunz DIVING JUDGE Unavailable [phone] Encounter Details Date Type Department Care Team (Late st Contact Info) Description 11/15/2023 Orders Only [facility] [address] [place] [address] Amy Kunz, DIVING JUDGE [address] [place] [address] Social History Tobacco Use Types Packs/Day Years [...] often do you attend chur ch or baptism services? Never 04/09/2023 Do you belong to any clubs o r organizations such as amish groups, unions, fraternal or athletic groups, or [...] medical care, and heating? Hard 04/09/2023 [facility] - Occupational [...] place to sleep or slept in a residential (including now)? No 04/09/2023 Comments Unknown Sex [...] Office Visit [facility] [address] [place] [address] Amy Kunz NP [address] [place] [address] documented as of this encounter Procedures Procedure Name Priority Date/Time Associated Diagnosis Comments SCANNED LABS Routine 11/15/2023 4:20 PM EDT documented in this encounter Results * SCANNED LABS (11/15/2023 4:20 PM EDT) us Amy Kunz DIVING JUDGE LAB CHG PERFORMABLES Final Resu lt documented in this encounter Visit Diagnoses Not on filedocumented in this encounter Care Teams Pulpwood Buyer Relationship Specialty Start Date End Date Mack Vaughn MD [address] [place] [phone] PCP - General Family Medicine 10/03/23 Amy Kunz NP [address] [place] [address] PCP - [facility] 04/09/24 Amy Kunz NP [address] [place] [address] Nurse Practitioner Family Medicine 10/03/23 documented as of this encounter
--- OUTSIDE RECORDS SUMMARY | 2024-09-29 11:05 | XMS_ITS | Clinical Summary ---
Author Organization [facility] Healthcare Address [address] [place] [address] Care Team Providers Care Cemetery Counselor Name Role Phone Mack Vaughn MD Primary Care Provider Amy Kunz NP Unavailable [phone] Amy Kunz AIR BRAKE TESTER Unavailable [phone] Allergies No known active allergies Medications albuterol HFA 90 mcg/act inhaler Inhale 2 puffs Daily as needed Active traZODone (Desyrel) 50 MG tablet Take 1 tablet by mouth at bedtime Active tiZANidine (Zanaflex) 4 MG capsule Take 1 capsule by mouth as needed at bedtime Active DULoxetine (Cymbalta) [address] capsule Take 2 capsules by mouth in the morning. 3 Active nortriptyline (Pamelor) 25 MG capsule Take 50 mg by mouth at bedtime 3 Active alendronate (Fosamax) 35 MG tabletIndication s:Osteopenia, unspecified location Take 1 tablet (35 mg) by mouth every 7 (seven) days for 28 days Take in the morning with a full glass of water, on an empty stomach, and do not take anything else by mouth or lie down for the next 30 min. 4 tablet 5 4 Active gabapentin (Neurontin) 300 MG capsuleIndicatio ns:Fibromyalgia Take 1 capsule (300 mg) by mouth in the morning and 1 capsule (300 mg) before bedtime. 180 capsule 1 4 Active omeprazole (PriLOSEC) [address] capsuleIndicatio ns:Gastroesophag eal reflux disease without esophagitis Take 1 capsule (20 mg) by mouth in the morning. Take before meals. 90 capsule 1 4 Active lisinopril 10 MG tabletIndication s:Primary hypertension Take 1 tablet (10 mg) by mouth Daily 90 tablet 1 4 Active loratadine (Claritin) 10 MG tabletIndication s:Environmental allergies Take 1 tablet (10 mg) by mouth Daily 90 tablet 1 4 Active metFORMIN (Glucophage) 500 MG tabletIndication s:Type 2 diabetes mellitus without complication, without long-term current use of insulin (HCC) Take 1 tablet (500 mg) by mouth in the morning. Take with meals. 90 tablet 1 4 Active cyanocobalamin (Vitamin B-12) 1000 MCG tablet Take 1,000 mcg by mouth Daily 4 Active methotrexate 2.5 MG tablet 8 tablets Orally Once a week for 30 days 5 Active folic acid (Folvite) 1 MG tablet Take 1 mg by mouth Daily 5 Active fluticasone (Flovent) 44 MCG/ACT inhaler 5 Active ergocalciferol (Vitamin D2) 1.25 MG (86917 UT) capsuleIndicatio ns:Vitamin D deficiency 1 pill three times a week 12 capsule 3 5 Active ergocalciferol (Vitamin D2) 1.25 MG (68851 UT) capsuleIndicatio ns:Vitamin D deficiency 1 pill twice a week 8 capsule 3 4 09/27/19 25 Discontinu ed(Reorder ) Calcium Carb-Cholecalcif dinora (Calcium + Vitamin D3) 600-5 MG-MCG tabletIndication s:Age-related osteoporosis without current pathological fracture Take 1 tablet by mouth in the morning and 1 tablet before bedtime. 180 tablet 1 5 09/24/19 25 glucose blood (True Metrix Blood Glucose Test) test stripIndications :Type 2 diabetes mellitus without complication, without long-term current use of insulin (HCC) 1 each by Other route Daily 100 each 3 09/29/19 25 Active Problems Problem Noted Date Diagnosed Date Immunosuppression due to chronic steroid use Abnormal weight gain 02/20/2024 Class 3 severe obesity with body mass index (BMI) of 50.0 to 59.9 in adult 02/20/2024 Assessment & Plan (05/22/2024 1:47 PM EST): Discussed with patient their BMI (actual, verses recommended). We have also discussed lifestyle modifications: attempts to perform physical activity as chronic conditions allow, also to monitor dietary intake: increasing protein/fruits/veggies and lowering carb intake (unless contraindicated). Limit sodas, juices, and sugary drinks. Was referred to [facility] weight management center. Could not get med approved she did not and does not want to go back Assessment & Plan (02/20/2024 7:02 AM EST): Continue with [facility] weight mgmt program Scoliosis 02/20/2024 Age-related osteoporosis wit katerin current pathological fracture 02/20/2024 Assessment & Plan (09/23/2024 6:53 AM EDT): On fosamax Assessment & Plan (02/20/2024 7:02 AM EST): On fosamax Will check DEXA scan as well Colon cancer screening 02/20/2024 Assessment & Plan (02/20/2024 1:39 PM EST): Colon cancer screening options were discussed with patient, as well as why colon cancer screening is indicated. Options are Colonoscopy: direct visualization, every 10 years (unless indicated more frequently), risks and benefits were discussed Cologuard: every 3 years, risks and benefits were discussed , contraindications were discussed (family hx of colon cancer, colon polyps) Patient has elected to: cologard Epistaxis 02/20/2024 Assessment & Plan (05/22/2024 1:46 PM EST): Resolved after ENT Assessment & Plan (02/20/2024 1:37 PM EST): Has been having for some time ER visit for this Avoid steroid nasal sprays Check labs Thoracic spondylosis 07/10/2023 Primary osteoarthritis of left knee 07/10/2023 Mild persistent asthma without complication 05/2023 Assessment & Plan (09/23/2024 3:43 PM EDT): Cont ICS, as well as rescue inhaler No changes in meds or doses Assessment & Plan (05/22/2024 7:03 AM EST): Cont ICS, as well as rescue inhaler No changes in meds or doses Assessment & Plan (11/19/2023 1:38 PM EDT): Cont ICS, as well as rescue inhaler No changes in meds or doses Assessment & Plan (10/08/2023 2:39 PM EDT): Cont ICS, as well as rescue inhaler No changes in meds or doses Assessment & Plan (07/10/2023 2:37 PM EDT): Cont ICS, as well as rescue inhaler No changes in meds or doses Obstructive sleep apnea, adult 06/18/2023 Assessment & Plan (09/23/2024 6:52 AM EDT): You have a diagnosis of obstructive sleep [...] just didn't go back to get it. [place] no benefit from this Assessment & Plan (05/22/2024 1:46 PM EST): You have a diagnosis of obstructive sleep [...] just didn't go back to get it. [place] no benefit from this Assessment & Plan (02/20/2024 1:31 PM EST): Is not compliant with use of PAP Dog ate mask Advised of stroke, OK, not using Skin lesion 06/18/2023 [facility] systemic steroid user 06/18/2023 Environmental allergies 06/18/2023 Elevated bilirubin 06/18/2023 Chronic lumbar pain 06/18/2023 Dyspnea 04/23/2023 Vitamin B 12 deficiency 04/16/2023 Assessment & Plan (05/22/2024 7:12 AM EST): Check labs Assessment & Plan (11/19/2023 1:27 PM EDT): Every other day instead of daily Assessment & Plan (10/08/2023 2:41 PM EDT): Check labs Encounter for screening mamm ogram for malignant neoplasm of breast 04/16/2023 Vitamin D deficiency 04/16/2023 Assessment & Plan (05/22/2024 7:12 AM EST): Check labs Assessment & Plan (11/19/2023 1:27 PM EDT): Reveiwed Vit d level will increase vit d to twice a week Assessment & Plan (10/08/2023 2:40 PM EDT): Check labs Body mass index (BMI) 50.0-59.9, adult Gastroesophageal reflux disease without esophagi tis 04/10/2023 Assessment & Plan (09/23/2024 6:52 AM EDT): Also taking d/t chronic steroid use Recommendations: freq small meals, nothing to eat or drink at least 2 hours prior to bed, limit caffeine, alcohol, as well as spicy foods Meds to limit or avoid if possible: NSAIDS Elevate HOB if possible Current med: omeprazole Assessment & Plan (05/22/2024 7:04 AM EST): Also taking d/t chronic steroid use Recommendations: freq small meals, nothing to eat or drink at least 2 hours prior to bed, limit caffeine, alcohol, as well as spicy foods Meds to limit or avoid if possible: NSAIDS Elevate HOB if possible Current med: omeprazole Assessment & Plan (02/20/2024 7:01 AM EST): Also taking d/t chronic steroid use Recommendations: freq small meals, nothing to eat or drink at least 2 hours prior to bed, limit caffeine, alcohol, as well as spicy foods Meds to limit or avoid if possible: NSAIDS Elevate HOB if possible Assessment & Plan (10/08/2023 2:40 PM EDT): stable Assessment & Plan (04/16/2023 1:41 PM EST): stable Primary hypertension 04/10/2023 Assessment & Plan (09/23/2024 6:52 AM EDT): Please check blood pressure daily and record DASH diet Limit caffeine Take medication as directed Contact office if chest pain, pressure, dizziness, shortness of breath, swelling legs Recommend slow position changes Current med: lisinopril Assessment & Plan (05/22/2024 7:04 AM EST): Please check blood pressure daily and record DASH diet Limit caffeine Take medication as directed Contact office if chest pain, pressure, dizziness, shortness of breath, swelling legs Recommend slow position changes Current med: lisinopril Assessment & Plan (02/20/2024 6:57 AM EST): Please check blood pressure daily and record DASH diet Limit caffeine Take medication as directed Contact office if chest pain, pressure, dizziness, shortness of breath, swelling legs Recommend slow position changes Assessment & Plan (10/08/2023 2:40 PM EDT): Continue with LALA inhibitor No med dose changes Assessment & Plan (04/16/2023 1:41 PM EST): At goal, cont lala, check labs Type 2 diabetes mellitus wit hout complication, without long-term current use of insulin 04/10/2023 Assessment & Plan (09/23/2024 3:01 PM EDT): Check blood sugars daily, notify if <70 or >200. Take medications (pills or insulin) as directed. Monitor for s/s of hypoglycemia (sweaty, dizziness, nausea, vomiting, or shakiness). Watch for increase in thirst, urination, or appetite. Inspect feet frequently monitoring for open wounds , and also recommend yearly eye exam. Pt should attempt to remain as physically active as chronic conditions allow, as well as trying to follow a diet low in carbohydrates, and simple sugars. Asa, statin, metformin, lala Check A1c: 6.7% 09/23/24 Assessment & Plan (05/22/2024 7:07 AM EST): Check blood sugars daily, notify if <70 or >200. Take medications (pills or insulin) as directed. Monitor for s/s of hypoglycemia (sweaty, dizziness, nausea, vomiting, or shakiness). Watch for increase in thirst, urination, or appetite. Inspect feet frequently monitoring for open wounds , and also recommend yearly eye exam. Pt should attempt to remain as physically active as chronic conditions allow, as well as trying to follow a diet low in carbohydrates, and simple sugars. Check A1c: Assessment & Plan (02/20/2024 1:38 PM EST): Check blood sugars daily, notify if <70 or >200. Take medications (pills or insulin) as directed. Monitor for s/s of hypoglycemia (sweaty, dizziness, nausea, vomiting, or shakiness). Watch for increase in thirst, urination, or appetite. Inspect feet frequently monitoring for open wounds , and also recommend yearly eye exam. Pt should attempt to remain as physically active as chronic conditions allow, as well as trying to follow a diet low in carbohydrates, and simple sugars. Check A1c, 6.4% Assessment & Plan (11/19/2023 1:39 PM EDT): Cannot get ozempic approved Refilled metfromin script Fu in 3 months Assessment & Plan (10/08/2023 2:41 PM EDT): Check A1c test Would recommend with morbid obesity and BMI of 53 we attempt to also get GLP 1 on board Recommend weight loss, freq foot checks. Eye exam yearly Assessment & Plan (07/10/2023 2:36 PM EDT): No changes in meds Recommend yearly eye exam, freq foot checks Fu in 3 months Assessment & Plan (04/16/2023 1:42 PM EST): Check labs Check blood sugars daily, notify if <70 or >200. Take medications (pills or insulin) as directed. Monitor for s/s of hypoglycemia (sweaty, dizziness, nausea, vomiting, or shakiness). Watch for increase in thirst, urination, or appetite. Inspect feet frequently monitoring for open wounds , and also recommend yearly eye exam. Pt should attempt to remain as physically active as chronic conditions allow, as well as trying to follow a diet low in carbohydrates, and simple sugars. Fibromyalgia 04/10/2023 Assessment & Plan (05/22/2024 7:05 AM EST): Takes gabapentin, duloxetine, tizanidine OARRS reviewed Assessment & Plan (02/20/2024 7:02 AM EST): Takes gabapentin OARRS reviewed Assessment & Plan (07/10/2023 2:39 PM EDT): Has been experiencing more pain over the last month, however her NIKKI , more stressors noted as well Sarcoidosis 04/10/2023 Overview (06/12/2024): Correspondence from Rheumatology, re steroids, they have not been able to get her off steroids as well and cannot get remicade approved with insurance Assessment & Plan (10/08/2023 2:43 PM EDT): Continues on prednisone 10mg daily, is unable to go down to 5mg d/t recurrence of symptoms She has been counseled on snf use of steroids increasing risk for diabetes, osteoporosis, as well as GI bleeding She is aware of the risks, and feels that her disease is well controlled with her current regime Assessment & Plan (07/10/2023 2:36 PM EDT): Continues on prednisone 10mg daily, is unable to go down to 5mg d/t recurrence of symptoms She has been counseled on library associate use of steroids increasing risk for diabetes, osteoporosis, as well as GI bleeding She is aware of the risks, and feels that her disease is well controlled with her current regime Bipolar disorder, unspecified 04/10/2023 Assessment & Plan (05/22/2024 7:08 AM EST): Continue with [facility] for counseling and med mgmt with dr wan Assessment & Plan (10/08/2023 2:43 PM EDT): Continue with [facility] for counseling and med mgmt with dr wan Assessment & Plan (07/10/2023 2:34 PM EDT): Continue with [facility] for counseling and med mgmt with dr wan Assessment & Plan (04/16/2023 1:42 PM EST): Continue with [facility] for counseling and med mgmt with dr wan Other insomnia 07/25/2021 Localized osteoarthritis of right knee 7 Major depressive disorder, r ecurrent severe without psychotic features 11/22/2016 Assessment & Plan (05/22/2024 7:08 AM EST): Continue with med mgmt with dr wan and counseling with [facility] Spondylosis of lumbar region without myelopathy or radiculopathy 05/29/2016 Resolved Problems Problem Noted Date Diagnosed Date Resolved Date Tear of meniscus of right kn ee, unspecified meniscus, unspecified tear type, unspecified whether old or current tear 06/18/2023 06/18/2023 Age-related osteoporosis wit h current pathological fracture, initial encounter 06/18/2023 02/20/2024 Overview (10/08/2023): DEXA: 01/13/2021 -0.86 hip Assessment & Plan (10/08/2023 2:40 PM EDT): Had DEXA through rheumatology Encounters Date Type Department Care Team Description 09/26/2024 Refill [facility] [address] [place] [address] Amy Kunz NP Vitamin D deficiency 09/23/2024 2:40 PM EDT Office Visit [facility] [address] [place] [phone] Amy Kunz NP Type 2 diabetes mellitus without complication, without long-term current use of insulin (HCC) (Primary Dx); Obstructive sleep apnea, adult; Primary hypertension ; Gastroesophageal reflux disease without esophagitis; Age-related osteoporosis without current pathological fracture ; Mild persistent asthma without complication (HCC) 07/29/2024 Telephone [facility] [address] [place] [address] Amy Kunz NP 07/28/2024 Refill [facility] [address] [place] [phone] Amy Kunz NP 07/28/2024 Telephone [facility] [address] [place] [address] Amy Kunz NP from Last 3 Months Family History Medical History Relation Name Comments Diabetes Father Hypertension Father Asthma Mother Cancer Mother Breast Cancer Depression Mother GILDA disease Mother Hypertension Mother Mental illness Mother Relation Name Status Comments Father Mother Social History Tobacco Use Types Packs/Day Years Used Date Smoking Tobacco: Never Tobacco Cessation:Counseling Given: Not Answered Alcohol Use Standard Drinks/Week Comments Not Currently [...] than three times a week 05/15/2024 Attends [employer] Not on file 05/15 Active Member [...] housing, medical care, and heating? Hard 04/09/2023 [facility] - Occupational [...] place to sleep or slept in a long term (including now)? No 04/09/2023 Comments Unknown Sex [...] 3.2 oz) 09/23/2024 2:45 PM EDT Height 160 cm (5' 3 ) 05/22/2024 1:14 PM EST Body Mass Index 51.41 05/22/2024 1:14 PM EST Plan of Treatment Upcoming Encounters Date Type Department Care Team (Late st Contact Info) Description 03/25/2025 1:20 PM EST Office Visit [facility] [address] [place] [address] Amy Kunz, JULITO [address] [place] [address] Health Maintenance Due Date Last Done Comments CT Colonography 1968 Colonoscopy 1968 FIT 1968 FOBT 1968 Sigmoidoscopy 1968 Pap Smear 1989 HPV/Cotest 1998 Diabetes: Urine Protein Screening 05/01/2024 024 Mammogram 08/08/2024 08/09/2023, 09/06/2021 Diabetes: Retinopathy Screening 12/08/2024 , 04/19/2020 Diabetes: Hemoglobin A1C 03/25/2025 025, 02/20/2024, 11/08/2023, Additional history exists Colorectal Cancer Screening 04/23/2027 FIT-DNA 04/23/2027 04/23/2024, 03/22/2021 Cervical Cancer Screening Discontinued Influenza Vaccine Discontinued Procedures Procedure Name Priority Date/Time Associated Diagnosis Comments POCT GLYCOSYLATED HEMOGLOBIN (HGB A1C) Routine 09/23/2024 3:01 PM EDT Type 2 diabetes mellitus without complication, without long-term current use of insulin (HCC) MM TOMOSYNTHESIS SCREENING BI 08/09/2023 2:35 PM EDT from Last 3 Months or Most Recently Relevant to Health Maintenance Results * (ABNORMAL) POCT glycosylated hemoglobin (Hb A1C) docked device (09/23/2024 3:01 PM EDT) Hemoglobin A1C 6.7 Blood Venous blood specimen / Unknown 09/23/2024 3:01 PM EDT Amy Kunz NP POINT OF CARE TEST ENTER/EDIT O RDERABLES Final Result * MM TOMOSYNTHESIS SCREENING BI (08/09/2023 2:35 PM EDT) Anatomical Region Laterality Modality Other 08/09/2023 2:35 PM EDT Narrative 08/09/2023 2:36 [place] [address] Mammography Report Signed Patient: DERICK THORNTON MR#: [id number] : 1970 Acct:[id number] Age/Sex: 53 / F ADM Date: 08/09/23 Loc: MAMMO Attending Dr: Amy Kunz NP Ordering Physician: Amy Kunz NP Results: Date of Service: 08/09/23 Follow Up: Procedure(s): MM tomosynthesis screening BI Accession Number(s): [id number] cc: Amy Kunz NP Patient Name: DERICK THORNTON MR#: [id number] : 1970 Exam Date: 08/09/2023 Ordering Doctor: [...] Treatments None Family Cancers None LOCATION: [facility] BREAST COMPOSITION: There are scattered areas of [...] Signed By: 08/09/23 1436 DD/ 1435 TD/TT: Material Reclaimer: Procedure Note Radiology, Radiologist, - 08/09/2023 [place] [address] Mammography Report Signed Patient: DERICK THORNTON TMR#: [id number] : 1970Acct:[id number] Age/Sex: 53 / FADM Date: 08/09/23 Loc: MAMMO Attending Dr: Amy Kunz NP Ordering Physician: Amy Kunz NPResults: Date of Service: 08/09/23Follow Up: Procedure(s): MM tomosynthesis screening BI Accession Number(s): [id number] cc: Amy Kunz NP Patient Name: DERICK THORNTON MR#: [id number] : 1970 Exam Date: 08/09/2023 Ordering Doctor: [...] Treatments None Family Cancers None LOCATION: [facility] BREAST COMPOSITION: There are scattered areas of [...] M.D. Signed By:08/09/23 1436 DD/ 1435 TD/TT: Material Reclaimer: Amy Kunz NP [facility] Final Result from Last 3 Months or Most Recently Relevant to Health Maintenance Insurance [employer] Care Teams Cemetery Counselor Relationship Specialty Start Date End Date Mack Vaughn MD [address] [place] [phone] PCP - General Family Medicine 10/03/23 Amy Kunz NP [address] [place] [phone] PCP - [facility] 04/09/24 Amy Kunz NP [address] [place] [phone] Nurse Practitioner Family Medicine 10/03/23
--- OUTSIDE RECORDS SUMMARY | 2024-09-29 11:05 | XMS_ITS | Encounter Summary ---
Author Organization [facility] tem Address [id number] [address] [place] [address] Care Team Providers Care Safety Scientist Name Role Phone Mack Vaughn MD Primary Care Provider [phone] Reason for Visit * Reason Onset Date Comments Med Refill 06/28/2020 Encounter Details Date Type Department Care Team (Late st Contact Info) Description 06/28/2020 Refill [facility] [address] [place] [phone] Deepthi Chaney RN Disorder of sacrum Social History Tobacco [...] have Coronavirus / COVID-19? No / Unsure 06/22/2020 12:55 PM EDT documented as of this encounter Miscellaneous Notes * Telephone Encounter - Deepthi Chaney RN - 06/28/2020 8:49 AM EDT Last OV:06/03/2020 Next OV:08/26/2020 OARRS appropriate:yes Last UDS: 02/26/2020 Pharmacy: Kevin Chaney RN 06/28/20 0852 documented in this encounter Plan of Treatment Not on file documented as of this encounter Visit Diagnoses Diagnosis Disorder of sacrum Disorders of sacrum documented in this encounter Care Teams Safety Scientist Relationship Specialty Start Date End Date Mack Vaughn MD PCP - General 02/16/24 documented as of this encounter
--- OUTSIDE RECORDS SUMMARY | 2024-09-29 11:05 | XMS_ITS | Encounter Summary ---
Author Organization [facility] tem Address [id number] [address] [place] [address] Care Team Providers Care Vice President Of Compliance Name Role Phone Mack Vaughn MD Primary Care Provider Reason for Visit * Reason Onset Date Comments Med Refill 12/31/2019 Encounter Details Date Type Department Care Team (Late st Contact Info) Description 12/31/2019 Refill [facility] [address] [place] [address] Karne Ramirez RN Disorder of sacrum Social History [...] have Coronavirus / COVID-19? No / Unsure 12/23/2019 12:58 PM EDT documented as of this encounter Miscellaneous Notes * Telephone Encounter - Karen Ramirez RN - 12/31/2019 2:58 PM EDT Last OV: 10/30/19 Next OV: 01/29/20 OARRS appropriate: Yes Last UDS: 08/28/19 Pharmacy: Rosey Ramirez RN 12/31/19 1500 documented in this encounter Plan of Treatment Not on file documented as of this encounter Visit Diagnoses Diagnosis Disorder of sacrum Disorders of sacrum documented in this encounter Care Teams Vice President Of Compliance Relationship Specialty Start Date End Date Mack Vaughn MD PCP - General 02/16/24 documented as of this encounter
--- OUTSIDE RECORDS SUMMARY | 2024-09-29 11:06 | XMS_ITS | Encounter Summary ---
Author Organization [facility] Address [address] [place] [address] Care Team Providers Care [employer] Mechanic Helper Name Role Phone Amy Kunz NP Primary Care Provider Mariza Lemus HEALTH ECONOMIST Unavailable [phone] Mack Vaughn MD Primary Care Provider Amy uKnz HEALTH ECONOMIST Unavailable [phone] Amy Kunz HEALTH ECONOMIST Unavailable [phone] Encounter Details Date Type Department Care Team (Late st Contact Info) Description 04/15/2023 Abstract [facility] [address] [place] [address] Amy Kunz NP [address] [place] [id number] Social History Tobacco Use Types Packs/Day Years Used Date Smoking Tobacco: Never Tobacco Cessation:Counseling Given: Not Answered Alcohol Use Standard Drinks/Week Comments Not Currently 0 (1 standard drink = 0.6 oz pur e alcohol) Humiliation, Afraid, Rape, and Kick questionnair e [...] often do you attend chur ch or zoroastrianism services? Never 04/09/2023 Do you belong to any clubs o r organizations such as anabaptist groups, unions, fraternal or athletic groups, or [...] housing, medical care, and heating? Hard 04/09/2023 [facility] [place] [facility] Occupat ional [facility] - Occupational Stress [...] place to sleep or slept in a alf (including now)? No 04/09/2023 Comments Unknown Sex [...] Office Visit [facility] [address] [place] [address] Amy Kunz NP [address] [place] [phone] documented as of this encounter Visit Diagnoses Not on filedocumented in this encounter Care Teams [employer] Mechanic Helper Relationship Specialty Start Date End Date Amy Kunz NP [address] [place] [phone] PCP - General 08/30/22 10/02/23 Mariza Lemus HEALTH ECONOMIST PCP - [facility] 07/09/23 Mack Vaughn MD [address] [place] [phone] PCP - General [facility] 10/03/23 Amy Kunz NP [address] [place] [phone] PCP - [facility] 04/09/24 Amy Kunz NP [address] [place] [phone] Nurse Practitioner Family Medicine 10/03/23 documented as of this encounter
--- NOTE | 2024-09-29 11:31 | MM_ITS ---
Patient Name: HARDEEP GARCIA MR#: [id number] : 1970 Exam Date: 09/29/2024 Ordering Doctor: JACKIE CUMMINGS CNP RADIOLOGY REPORT PROCEDURE: MM TOMOSYNTHESIS SCREENING BI COMPARISON: MM TOMOSYNTHESIS SCREENING BI, 08/09/2023. MG MAMM SCREEN 3D JUAN MANUEL CAD, 09/06/2021. MG MAMM SCREEN JUAN MANUEL W CAD, 01/22/2020. MAMMO JUAN MANUEL SCREEN, 04/19/2006. INDICATIONS: Screening Calculator Name NCI Breast Cancer Risk Assessment Tool 5 Year Breast Cancer Risk 1.20% Lifetime Breast Cancer Risk 7.90% Personal Breast Cancer No Personal Ovarian Cancer No Treatments None Family Cancers None LOCATION: [facility] BREAST COMPOSITION: There are scattered areas of fibroglandular density. FINDINGS: DIAGNOSTIC CATEGORY 1--NEGATIVE. RIGHT BREAST: No significant suspicious finding. LEFT BREAST: No significant suspicious finding. RECOMMENDATIONS: ROUTINE MAMMOGRAM AND CLINICAL EVALUATION IN 12 MONTHS. PLEASE NOTE: A NORMAL MAMMOGRAM DOES NOT EXCLUDE THE POSSIBILITY OF BREAST CANCER. A CLINICALLY SUSPICIOUS PALPABLE LUMP SHOULD BE BIOPSIED. Dictated by: Mickey Crowley DO on 09/29/2024 at 16:38 Approved by: Mickey Crowley DO on 09/29/2024 at 16:40
[2024-09-29 11:40] LABS: Estimated Average Glucose 146 mg/dL; Glycohemoglobin A1C 6.7 % (4.5-6.2)
[2024-09-29 11:49] LABS: Bilirubin Urine NEGATIVE (NEGATIVE); Blood Urine NEGATIVE (NEGATIVE); Clarity Urine CLEAR (CLEAR); Color Urine YELLOW (YELLOW); Glucose Urine UA NEGATIVE (NEGATIVE); Ketones Urine NEGATIVE (NEGATIVE); Leukocyte Esterase Urine NEGATIVE (NEGATIVE); Nitrite Urine NEGATIVE (NEGATIVE); Protein Urine NEGATIVE (NEG/TRACE); Specific Gravity Urine >=1.030 (1.005-1.025); pH Urine 5.5 (5.0-9.0)
[2024-09-29 11:54] LABS: Urine Microscopic Indicated NO
[2024-09-29 12:09] LABS: Basophils Percent Auto 0.3 % (0.2-2.0); Eosinophils Absolute Auto 0.1 10^3/uL (0.0-0.7); Eosinophils Percent Auto 0.8 % (0.9-7.0); Hematocrit 38.7 % (36.0-48.0); Hemoglobin 10.6 g/dL (12.0-16.0); Immature Granulocytes Abs Auto 0.08 10^3/uL (0.00-0.03); Immature Granulocytes Pct Auto 0.7 % (0.0-0.5); Lymphocytes Absolute Auto 2.4 10^3/uL (1.2-3.8); Lymphocytes Percent Auto 20.9 % (20.5-60.0); Mean Corpuscular HGB Conc 27.4 g/dL (29.9-35.2); Mean Corpuscular Hemoglobin 19.8 pg (26.7-34.0); Mean Corpuscular Volume 72.2 fL (81.0-99.0); Mean Platelet Volume 10.8 fL (9.5-13.5); Monocytes Absolute Auto 0.9 10^3/uL (0.3-0.8); Monocytes Percent Auto 7.9 % (1.7-12.0); Neutrophils Absolute Auto 7.8 10^3/uL (1.4-6.5); Neutrophils Percent Auto 69.4 % (43.0-75.0); Platelet Count 411 10^3/uL (150-450); Red Blood Count 5.36 10^6/uL (4.20-5.40); White Blood Count 11.3 10^3/uL (4.0-11.0)
[2024-09-29 12:13] LABS: Red Cell Distribution Width 22.5 % (11.0-15.0)
[2024-09-29 12:17] LABS: Alanine Aminotransferase 15 U/L (14-59); Albumin Globulin Ratio 0.8; Albumin Level 3.2 g/dL (3.4-5.0); Alkaline Phosphatase 95 U/L (46-116); Anion Gap 11.5; Aspartate Amino Transferase 12 U/L (15-37); BUN Creatinine Ratio 21.6; Bilirubin Total 0.5 mg/dL (0.2-1.0); Carbon Dioxide 31.3 mmol/L (21.0-32.0); Chloride 106 mmol/L (98-107); Cholesterol 146 mg/dL (<=200); Estimated GFR (African America >60 (>=60 mL/min/1.73m^2); Estimated GFR (Non-African Ame 56 (>=60 mL/min/1.73m^2); Globulin 4.1 g/dL; Glucose 100 mg/dL (74-106); HDL Cholesterol 73 mg/dL (40-60); Potassium 4.8 mmol/L (3.5-5.1); Sodium 144 mmol/L (136-145); Thyroid Stimulating Hormone 1.387 uIU/mL (0.358-3.740); Total Protein 7.3 g/dL (6.4-8.2); Triglycerides 72 mg/dL (<=150); VLDL CHOLESTEROL 14.4 mg/dL
[2024-09-29 22:16] LABS: Microalbum Creatinine Ratio Ur 16.4 mg/g (0.0-29.9); Microalbumin Urine Random 4.4 mg/dL (<=30.0)
[2024-09-30 04:14] LABS: Vitamin B12 747 pg/mL (232-1245)
== END 2024-09-29 11:00 | disposition home or self-care (01) ==
PROVIDERS: PCP Nurse Practitioner; Visit Provider Nurse Practitioner
DX: Z12.31 Encounter for screening mammogram for malignant neoplasm of breast (principal); E11.9 Type 2 diabetes mellitus without complications; I10 Essential (primary) hypertension; G47.33 Obstructive sleep apnea (adult) (pediatric); E66.01 Morbid (severe) obesity due to excess calories; E55.9 Vitamin D deficiency, unspecified; E53.8 Deficiency of other specified B group vitamins; F33.2 Major depressive disorder, recurrent severe without psychotic features
CPT/HCPCS: 36415; 77063; 77067; 80053; 80061; 81003; 82043; 82306; 82570; 82607; 83036; 84443; 85025